=== PATIENT | female | born 1975 | race Caucasian/White ===

== ENCOUNTER 2022-05-03 09:06 | Emergency (ER) | payer MEDICAID, SELFPAY ==
[2022-05-03 09:24] VITALS: BP 110/76; BP 128/78; PULSE 101; PULSE 87; RESP 18; TEMP 36.8; O2SAT 97; O2SAT 98; BMI 28.7
--- NOTE | 2022-05-03 09:50 | ED.PSYCH ---
HPI - Psych General Chief Complaint: Psychiatric Symptoms Stated Complaint: SI Time Seen by Provider: 05/03/22 09:43 Source: patient Mode of arrival: ambulatory Limitations: no limitations History of Present Illness HPI Narrative: 46-year-old female previously healthy here with reports increased stressors at home. Patient tells me she currently is homeless. She was evicted from her recent place of living. She reports last night she had several drinks on got into a verbal argument with her . She tells me that she got really upset and stated i wish i was . Patient denies any suicidal thoughts. Denies homicidal ideations. She tells me she is stressed and anxious and is working on setting up an appointment with a trauma therapist. She denies any additional substance use. She has no physical complaints. Review of Systems Review of Systems: Yes all other systems are reviewed and are negative Constitutional: Constitutional: Reports no additional constitutional complaints, Denies body ache(s), Denies chills, Denies fever(s), Denies headache(s) and Denies weakness Eyes: Eyes: Reports no additional eye complaints and Denies change in vision ENT: Reports system reviewed and no additional complaints, except as documented, Denies dizziness, Denies headache(s), Denies nasal congestion, Denies nasal discharge and Denies neck pain Cardiovascular: Cardiovascular: Reports no additional cardiovascular complaints, Denies chest pain, Denies leg edema and Denies dyspnea Respiratory: Respiratory: Reports no additional respiratory complaints, Denies cough and Denies dyspnea Gastrointestinal: Gastrointestinal: Reports no additional gastrointestinal complaints, Denies abdominal pain, Denies diarrhea, Denies nausea and Denies vomiting Genitourinary: Genitourinary: Reports no additional female genitourinary complaints and Denies urinary incontinence Musculoskeletal: Musculoskeletal: Reports no additional musculoskeletal complaints, Denies back pain, Denies arthralgias, Denies joint swelling, Denies neck pain, Denies numbness and Denies tingling Integumentary/Breasts: Skin/Breast: Reports system reviewed and no additional complaints, except as docu and Denies rash Neurologic: Reports system reviewed and no additional complaints, except as documented, Denies Abnormal speech present, Denies dizziness, Denies headache(s), Denies numbness, Denies tingling and Denies weakness Psychiatric: Psychiatric: Reports anxiety, Reports depression, Denies homicidal ideation and Denies suicidal ideation PMFSH Past Medical History Attestation statement: The following information was validated with the patient. Source: old records reviewed and nursing notes reviewed Social History Social History Advance Directives: No Advance Directives Information Provided: No Physical Exam Vital Signs: Vital Signs: Last Vital Signs Temp 98.2 F 05/03/22 09:24 Pulse 101 H 05/03/22 09:24 Resp 18 05/03/22 09:24 BP 110/76 05/03/22 09:24 Pulse Ox 97 05/03/22 09:24 O2 Del Method 05/03/22 09:24 BMI result Body Mass Index 28.7 Const: General: cooperative, healthy appearing, comfortable and no acute distress Orientation/consciousness: patient oriented x3 Limitations: no limitations HEENT: Head: Yes normal to inspection Ears: hearing grossly normal bilaterally General nose exam: Normal external nose present Face and sinus: Yes normal facial exam Mouth: Normal oral and palatal mucosa present Throat: Yes posterior oropharynx normal Eyes: General: appearance normal, both eyes and all related structures Pupils: Equal, round and reactive pupils present Neck: Neck: Yes normal visual inspection Chest: Chest palpation & inspection: normal inspection of the chest Resp: Effort & Inspection: normal respiratory effort Auscultation: clear to auscultation bilaterally Cardio: Rate: regular rate Rhythm: regular rhythm Peripheral pulses: Peripheral pulses 2+ throughout GI: Inspection: Yes normal to inspection Palpation (GI): Soft to palpation and nontender Auscultation: normal bowel sounds Back/Spine/Pelvis: Thoracic/Lumbar Spine: thoracic and lumbar spine normal to inspection Skin: General skin exam: no rashes or lesions noted Neuro: General: patient oriented x3, no focal motor deficits and normal sensation to monofilament Cranial nerves: Yes CN's II-XII intact bilaterally and Yes Equal, round and reactive pupils present Cognition (Neuro): normal cognition Speech: No Abnormal speech present Gait exam (Neuro): Normal gait present Motor exam (neuro): 5/5 motor strength present throughout Extrem: General: Yes normal to inspection MDM - Psych MDM Narrative Medical decision making narrative: 46-year-old female with multiple life stressors here after verbal alternate with after drinking several alcoholic beverages with a suicidal statement. Patient denies any suicidal or homicidal ideations. She is alert and oriented. She has no physical complaints. She does not wish to remain to speak to crisis. As she is not suicidal or homicidal and has a plan to follow-up with an outpatient resources and I think this is appropriate. She is able to call her family to come pick her up. Patient is walking with a steady gait. She is clinically sober. Medical Records Attestation: I reviewed the patient's medical records. Lab Data Attestation: I reviewed the patient's lab results. Discharge Plan Discharge Clinical Impression: Acute anxiety, Stress Patient Disposition: Home, Self-Care Instructions: Stress (ED), Anxiety (ED) Additional Instructions: Follow-up with your outpatient providers Return for any suicidal thoughts Referrals: SENIA BERTRAND [Primary Care Provider] - Interventions: ED Discharge Assessment Last Done: 05/03/22 09:58 Discharge Date/Time: 05/03/22 09:58
== END 2022-05-03 09:58 | disposition home or self-care (01) ==
PROVIDERS: Emergency Provider Emergency Medicine Emergency Medical Services; PCP Physician Assistant Medical
DX: F41.9 Anxiety disorder, unspecified (principal); F43.0 Acute stress reaction; Z59.02 Unsheltered homelessness
CPT/HCPCS: 99282

== ENCOUNTER 2022-08-03 13:21 | Emergency (ER) | payer MEDICAID, SELFPAY ==
[2022-08-03 13:34] VITALS: BP 114/83; PULSE 77; RESP 18; TEMP 36.5; O2SAT 96; BMI 28.5
== END 2022-08-03 16:26 | disposition left against medical advice (07) ==
PROVIDERS: Emergency Provider Emergency Medicine; PCP Physician Assistant Medical
DX: R06.00 Dyspnea, unspecified (principal); B04 Monkeypox
CPT/HCPCS: 99281

== ENCOUNTER 2025-05-20 00:33 | Emergency (ER) | payer OTHER, SELFPAY ==
--- NOTE | ~2025-05-20 | XR_ITS ---
CLINICAL HISTORY: injury 4th digit 4 view right 4th digit Comparison: None Findings: Bones intact. No dislocations. No significant arthritic change. No erosions. No radiopaque foreign body. IMPRESSION: 1. No acute findings This document has been electronically signed by: Denny Jones MD on 05/20/2025 03:19:03
--- NOTE | ~2025-05-20 | XR_ITS ---
CLINICAL HISTORY: chest pain 1 view chest x-ray Comparison: None provided Findings: The lungs are clear. Heart size is normal. No acute fracture. IMPRESSION: 1. No acute findings. This document has been electronically signed by: Denny Jones MD on 05/20/2025 02:22:55
[2025-05-20 00:40] VITALS: BP 125/68; BP 142/84; PULSE 76; PULSE 88; RESP 19; TEMP 36.9; O2SAT 95; O2SAT 96; BMI 23.8
--- NOTE | 2025-05-20 00:46 | PC.NURSE ---
safety check performed by security with RN at bedside, belongings in [facility].
[2025-05-20 00:47] VITALS: BP 125/68; PULSE 88; RESP 19; TEMP 36.9; O2SAT 95
--- NOTE | 2025-05-20 00:49 | ECG_ITS ---
Test Reason : CP Blood Pressure : */* mmHG Vent. Rate : 62 BPM Atrial Rate : 62 BPM P-R Int : 122 ms QRS Dur : 78 ms QT Int : 458 ms P-R-T Axes : 54 83 68 degrees QTcB Int : 464 ms Normal sinus rhythm with sinus arrhythmia Nonspecific ST and T wave abnormality Abnormal ECG No previous ECGs available Referred By: Radha Joyner Electronically Signed By: Alok Panda
[2025-05-20 01:30] LABS: MANUAL DIFF FLAG NO
[2025-05-20 01:33] LABS: Hematocrit 40.6 % (37.0-47.0); Hemoglobin 14.3 g/dl (12.0-16.0); Imm Gran Abs Auto 0.03 X10*3/uL (0.00-0.03); Imm Gran Pct Auto 0.3 % (0.0-0.4); Lymphocytes Absolute Auto 2.1 X10*3/uL (1.2-4.9); Mean Corpuscular HGB Conc 35.2 g/dl (31.0-35.0); Mean Corpuscular Hemoglobin 28.9 pg (27.0-33.0); Mean Corpuscular Volume 82.0 fL (80.0-98.0); NRBC Abs Auto 0.000 X10*3/uL (0.0-0.012); NRBC Pct Auto 0.0 /100WBC (0.0-0.2); Platelet Count 124 X10*3/uL (160-400); Red Blood Count 4.95 X10*6/uL (4.20-5.50); White Blood Count 10.8 X10*3/uL (4.8-10.8)
[2025-05-20 01:45] LABS: Alanine Aminotransferase 38 U/L (0-31); Albumin Level 4.3 g/dL (3.5-5.0); Alkaline Phosphatase 69 U/L (39-117); Anion Gap 15 (12-20); Aspartate Amino Transferase 48 U/L (5-31); Blood Urea Nitrogen 7 mg/dL (9-16); Calcium 8.7 mg/dL (8.4-10.2); Cannabinoid Screen Urine POSITIVE (Not Detect); Carbon Dioxide 22 mmol/L (22-29); Chloride 108 mmol/L (96-108); Creatinine Clr Calc Pharmacy 80.8; Estimated Glomerular Filt Rate > 60; Potassium 3.5 mmol/L (3.3-5.1); Sodium 141 mmol/L (135-145); Total Protein 7.5 g/dL (6.5-8.0)
--- NOTE | 2025-05-20 01:50 | ED.CHESTPAIN ---
HPI - Chest Pain General Chief Complaint: Chest Pain Stated Complaint: substance use cocaine unwell Time Seen by Provider: 05/20/25 00:37 Source: patient, EMS and RN notes reviewed Mode of arrival: EMS Limitations: no limitations History of Present Illness ED Provider: Dr. Rdaha Joyner HPI narrative: 49-year-old female with a history of congenital heart defect with surgical repair in 2021 presenting with chest pain after snorting cocaine around 11:00 p.m. last night. States she was able to fall asleep but woke suddenly at midnight with severe chest pain radiating to her left shoulder and jaw. Describes associated shortness of breath. Admits that she has use cocaine previously without this type of reaction. She does not use it regularly however. Denies associated fever, productive cough, nausea or vomiting, lower extremity edema or pain. Had been feeling well prior to this. She does use tobacco as well. Denies other illicit substance or alcohol use. Related Data Allergies Allergy/AdvReac Type Severity Reaction Status Date / Time hydromorphone (From Dilaudid) AdvReac Unknown Verified 05/20/25 00:44 Review of Systems Review of Systems: Yes all other systems are reviewed and are negative (As per HPI) [facility] Past Medical History Attestation statement: The following information was validated with the patient. [facility] Narrative: Congenital heart defect, tobacco use, cocaine use Social History Social History Smoked in Last 30 Days: Yes Use of substances other than those prescribed or required for medical reasons: Yes Substance Use Type: Crack/Cocaine Advance Directives: No Advance Directives Information Provided: Yes Do you have a plan to hurt others: No Plan Patient : No Physical Exam Vital Signs: Vital Signs: Last Vital Signs Temp 98.4 F 05/20/25 05:44 Pulse 75 05/20/25 05:44 Resp 13 05/20/25 05:44 BP 117/77 05/20/25 05:44 Pulse Ox 93 05/20/25 05:44 O2 Del Method Room Air 05/20/25 05:44 BMI result Body Mass Index 23.8 GENERAL: Anxious, tearful. SKIN: Normal skin color for ethnicity, warm, dry, intact, no rashes noted. HEENT: Normocephalic, atraumatic, no stridor, posterior oropharynx nonerythematous, dentition intact, EOMI. NECK: Soft, supple, full ROM, midline structures nontender, no step-offs, no deformities, no lymphadenopathy. CHEST: Heart regular rhythm, no murmurs, symmetric chest rise and fall, no crepitus. PULMONARY: Clear to auscultation bilaterally, no labored breathing, no wheezes/rhales/ rhonchi. ABDOMINAL: Soft, nondistended, nontender, positive bowel sounds in all quadrants. : Deferred. MUSCULOSKELETAL: Normal tone, full range of motion, no deformities, no peripheral edema. NEURO: Alert and oriented x3, CN II through XII intact, equal strength and sensation bilateral upper and lower extremities, no focal neurologic deficits. PSYCHIATRIC: Anxious affect, tearful, fluid speech, good eye contact and appropriate demeanor. Medications Administered Discontinued Medications Generic Name Dose Route Start Last Admin Trade Name Freq PRN Reason Stop Dose Admin Lorazepam 1 mg 05/20/25 02:00 05/20/25 02:06 Lorazepam 1 Mg Tablet PO 05/20/25 02:01 1 mg ONCE ONE Administration Medical Decision Making Medical Decision Making [facility] Narrative: Patient presents today with a chief complaint of chest pain. Differential diagnosis includes, but is not limited to, acute coronary syndrome, musculoskeletal pain, pneumothorax, GERD, pleurisy, pulmonary embolism, dissection, among others. I will order EKG, chest x-ray, the laboratory workup including cardiac enzymes to further evaluate for etiology. Workup reassuring. EKG is not ischemic. Extensive discussion regarding cessation of cocaine use in the setting of congenital heart defect history. Using shared decision making, plan for discharge home to follow-up with primary care and/or specialist. Patient understands and agrees with plan for discharge. Discharged home in stable condition. Differential Diagnosis Differential Diagnoses: The differential diagnosis associated with the presentation includes (As above) Admission/Observation Consideration of admission/observation: Escalation of care including admission/observation considered Lab Data [facility] Lab Attestation statement: I reviewed the patient's lab results. 05/20/25 01:25 05/20/25 01:25 Labs: Lab Results 05/20/25 Range/Units 01:25 WBC 10.8 (4.8-10.8) X10*3/uL RBC 4.95 (4.20-5.50) X10*6/uL Hgb 14.3 (12.0-16.0) g/dl Hct 40.6 (37.0-47.0) % MCV 82.0 (80.0-98.0) fL MCH 28.9 (27.0-33.0) pg MCHC 35.2 H (31.0-35.0) g/dl RDW 14.3 (11.0-16.0) % Plt Count 124 L (160-400) X10*3/uL MPV 10.0 (9.4-12.3) fL Immature Gran % (Auto) 0.3 (0.0-0.4) % Neut % (Auto) 69.8 (45-73) % Lymph % (Auto) 19.4 L (20-40) % Nelson % (Auto) 10.0 (2-11) % Eos % (Auto) 0.3 (0-4) % Baso % (Auto) 0.2 (0-2) % Lymph # (Auto) 2.1 (1.2-4.9) X10*3/uL Nelson # (Auto) 1.1 (0.1-1.2) X10*3/uL Eos # (Auto) 0.0 (0.0-0.4) X10*3/uL Baso # (Auto) 0.0 (0.0-0.2) X10*3/uL Abs Immat Gran (auto) 0.03 (0.00-0.03) X10*3/uL Absolute Neuts (auto) 7.6 (2.0-8.3) x10*3/uL Absolute Nucleated RBC 0.000 (0.0-0.012) X10*3/uL Nucleated RBC % (auto) 0.0 (0.0-0.2) /100WBC Sodium 141 (135-145) mmol/L Potassium 3.5 (3.3-5.1) mmol/L Chloride 108 (96-108) mmol/L Carbon Dioxide 22 (22-29) mmol/L Anion Gap 15 (12-20) BUN 7 L (9-16) mg/dL Creatinine 0.67 (0.5-1.4) mg/dL Estim Creat Clear Calc 80.8 Estimated GFR > 60 Random Glucose 104 (60-115) mg/dL Calcium 8.7 (8.4-10.2) mg/dL Total Bilirubin 0.5 (0.0-1.0) mg/dL AST 48 H (5-31) U/L ALT 38 H (0-31) U/L Alkaline Phosphatase 69 (39-117) U/L Troponin I High Sens < 2.7 (<3.5-17.0) ng/L Total Protein 7.5 (6.5-8.0) g/dL Albumin 4.3 (3.5-5.0) g/dL Urine Opiates Screen Not Detected (Not Detect) Ur Buprenorphine Scrn Not Detected (Not Detect) ng/mL Ur Oxycodone Screen Not Detected (Not Detect) ng/mL Urine Methadone Screen Not Detected (Not Detect) ng/mL Urine Fentanyl Screen Not Detected (Not Detect) Ur Barbiturates Screen Not Detected (Not Detect) Ur Phencyclidine Scrn Not Detected (Not Detect) Ur Amphetamines Screen Not Detected (Not Detect) U Benzodiazepines Scrn Not Detected (Not Detect) Urine Cocaine Screen POSITIVE H (Not Detect) U Marijuana (THC) Screen POSITIVE H (Not Detect) Independent Interpretation I performed an independent interpretation of an: Plain X-Ray Interpretation: My independent interpretation of the chest x-ray reveals no consolidations, pulmonary edema, pleural effusion, pneumothorax, obvious bony abnormalities. Radiology Impression Discussion of test interpretation with radiology: I have reviewed the radiologist's reading. Independent Historian Clinical information obtained from an independent historian. History obtained from or confirmed by: EMS Chronic Conditions Patient?s care impacted by: Other (Congenital heart defect) Social Determinants Patient?s care significantly limited by Social Determinants of Health including: Alcoholism and drug addiction in family and Problems related to primary support group Discharge Plan Discharge Clinical Impression: Atypical chest pain, Contusion of finger without damage to nail, Cocaine use Patient Disposition: Home, Self-Care Instructions: Chest Pain (ED), Contusion in Adults (ED) Additional Instructions: Stopped using cocaine and nicotine. Both are dangerous to your heart. Follow-up with your primary care doctor pain medications. Return to the emergency department with any new or worsening symptoms including: Worsening chest pain, difficulty breathing, fevers greater than 100?, any new symptom that concerns you. Call 911 with any medical emergency. Interventions: ED Discharge Assessment Last Done: 05/20/25 05:44 Discharge Date/Time: 05/20/25 05:46 Print Language: Persian
[2025-05-20 01:51] LABS: Troponin-I High Sensitivity < 2.7 ng/L (<3.5-17.0)
[2025-05-20 03:09] VITALS: BP 111/61; PULSE 59; RESP 16; TEMP 36.9; O2SAT 94
[2025-05-20 05:23] VITALS: BP 117/77; PULSE 75; RESP 13; TEMP 36.9; O2SAT 93
[2025-05-20 05:44] VITALS: BP 117/77; PULSE 75; RESP 13; TEMP 36.9; O2SAT 93
== END 2025-05-20 05:46 | disposition home or self-care (01) ==
PROVIDERS: Emergency Provider Emergency Medicine
DX: R07.89 Other chest pain (principal); F14.10 Cocaine abuse, uncomplicated; M79.644 Pain in right finger(s); Z79.899 Other long term (current) drug therapy; Z51.81 Encounter for therapeutic drug level monitoring
CPT/HCPCS: 36415; 71045; 73140; 80053; 80307; 84484; 85025; 93005; 99284

== ENCOUNTER → 2025-05-20 00:49 | Outpatient (BNV) | payer OTHER, SELFPAY | PROVIDERS: Emergency Provider Emergency Medicine; Visit Provider Internal Medicine Cardiovascular Disease | DX: R94.31 Abnormal electrocardiogram [ECG] [EKG] (principal); R07.9 Chest pain, unspecified | CPT/HCPCS: 93010 ==

== ENCOUNTER → 2025-05-20 00:49 | Outpatient (BNV) | payer OTHER, SELFPAY | PROVIDERS: Emergency Provider Emergency Medicine; Visit Provider Radiology Diagnostic Radiology | DX: R07.9 Chest pain, unspecified (principal); S60.944A Unspecified superficial injury of right ring finger, initial encounter | CPT/HCPCS: 71045; 73140 ==